=== PATIENT | female | born 1950 | race Two or more races ===

== ENCOUNTER 2023-04-09 22:25 | Emergency (ER) | payer OTHER ==
[~2023-04-09] VITALS: Ht 152.4 cm; Wt 48.1 kg
[2023-04-09] MEDS ORDERED: CRESTOR40 MG PO (22:48)
[2023-04-09] MEDS ORDERED: COZAAR50 MG PO (22:48)
[2023-04-10] MEDS ORDERED: HYDROCODONE/CHLORPHEN P-STIREX 5 ML ML PO STA (01:40)
[2023-04-10 01:56] LABS: HEMATOCRIT 30.1 % (36.0-45.00); HEMOGLOBIN 10.2 g/dL (12.0-15.00); MEAN CELL VOLUME 88.5 fL (80.00-100.00); MEAN CORPUSCULAR HEMOGLOBIN 30.2 pg (27.00-32.0); MEAN CORPUSCULAR HGB CONC 34.1 g/dl (32.0-36.0); PLATELET COUNT 149 K/uL (150-450); RED CELL DISTRIBUTION WIDTH 14.4 % (11.5-14.5)
[2023-04-10] MEDS ORDERED: CEFTRIAXONE SODIUM 1,000 MG VIAL IM ONE (03:15)
== END 2023-04-10 03:13 | disposition home or self-care (01) ==
LOC: ER 22:26
DX: R53.81 Other malaise (principal); J06.9 Acute upper respiratory infection, unspecified; Z20.822 Contact with and (suspected) exposure to COVID-19
CPT/HCPCS: 36415; 96372; 99282; J0696